=== PATIENT | female | born 1950 | race Two or more races ===

== ENCOUNTER 2019-08-28 10:52 | Emergency (ER) | payer OTHER, MEDICAID ==
[~2019-08-28] VITALS: Ht 154.9 cm; Wt 68.9 kg
[~2019-08-28 10:52] MED LIST: ENAL2.5T; GABA100C; GLYB1.257; METF-370; PIOG15TA38
[2019-08-28 11:01] VITALS: BP 137/63
[2019-08-28 11:46] LABS: Basophils # (auto) 0.1 uL; Basophils % (auto) 1.3 % (0.0-2.0); Eosinophils # (auto) 0.1 uL; Eosinophils % (auto) 1.2 % (0.0-7.0); Lymphocytes # (auto) 1.6 uL; Lymphocytes % (auto) 23.8 % (10.0-50.0); Mean Corpuscular Hemoglobin 29.2 pg (28.0-32.0); Mean Corpuscular Hgb Conc. 33.4 g/dL (32.0-36.0); Mean Corpuscular Volume 87.4 fL (80.0-100.0); Monocytes # (auto) 0.3 uL; Monocytes % (auto) 4.7 % (0.0-12.0); Neutrophils # (auto) 4.7 uL; Nucleated Red Blood Cells % 0.1 %; Platelet Count (auto) 231 10^3/uL (140-450); Red Blood Cells 4.47 10^6/uL (4.0-5.20); White Blood Cell 6.8 10^3/uL (4.4-10.8)
[2019-08-28 12:12] LABS: Alanine Aminotransferase 33 U/L (13-56); Albumin 3.4 g/dL (3.4-5.0); Anion Gap 5 (5-15); Aspartate Aminotransferase 23 U/L (15-37); BUN/Creatinine Ratio 18.9; Blood Urea Nitrogen 14 mg/dL (7-18); Calcium 9.1 mg/dL (8.5-10.1); Carbon Dioxide 30 mmol/L (21-32); Chloride 105 mmol/L (98-107); GFR African American 101 mL/min; GFR Non-African American 83 mL/min; Glucose 174 mg/dL (74-106); Sodium 140 mmol/L (136-145)
[2019-08-28 12:17] LABS: Alkaline Phosphatase 77 U/L (45-117); Bilirubin, Total 0.2 mg/dL (0.2-1.0); Total Protein 7.8 g/dL (6.4-8.2)
[2019-08-28 12:39] LABS: Urine Bacteria NONE SEEN /hpf (None Seen); Urine Blood Negative /uL (Negative); Urine Specific Gravity 1.012 (1.001-1.035); Urine WBC <1 /hpf (0 - 5)
== END 2019-08-28 14:50 | disposition home or self-care (01) ==
LOC: ER 10:52
DX: K29.70 Gastritis, unspecified, without bleeding (principal); E11.9 Type 2 diabetes mellitus without complications; I10 Essential (primary) hypertension; E78.5 Hyperlipidemia, unspecified; Z90.49 Acquired absence of other specified parts of digestive tract; Z85.3 Personal history of malignant neoplasm of breast
CPT/HCPCS: 36415; 74176; 80053; 81001; 83690; 84484; 85025; 93005

== ENCOUNTER → 2020-01-16 | Emergency (ER) | payer OTHER, MEDICAID ==
[~2020-01-16] VITALS: Ht 152.4 cm; Wt 68.0 kg
[2020-01-16 10:29] VITALS: BP 120/60
== END | disposition home or self-care (01) ==
LOC: ER 10:17
DX: J20.9 Acute bronchitis, unspecified (principal); J01.00 Acute maxillary sinusitis, unspecified; E11.9 Type 2 diabetes mellitus without complications; I10 Essential (primary) hypertension; E78.5 Hyperlipidemia, unspecified; Z90.49 Acquired absence of other specified parts of digestive tract
CPT/HCPCS: 71046

== ENCOUNTER 2020-07-18 08:42 | Emergency (ER) | payer OTHER, MEDICAID ==
[~2020-07-18] VITALS: Ht 152.4 cm; Wt 69.9 kg
[~2020-07-18 08:42] MED LIST changes: -ENAL2.5T; +ENAL2.5T7
[2020-07-18 09:45] LABS: Basophils # (auto) 0.1 10 ^3/uL (0-0.2); Basophils % (auto) 0.8 % (0.0-2.0); Eosinophils # (auto) 0.1 10 ^3/uL (0-0.8); Hematocrit 39.8 % (36.0-46.0); Hemoglobin 13.2 g/dL (12.2-16.2); Lymphocytes # (auto) 1.9 10 ^3/uL (0.4-5.4); Lymphocytes % (auto) 27.2 % (10.0-50.0); Mean Corpuscular Hemoglobin 28.8 pg (28.0-32.0); Mean Corpuscular Hgb Conc. 33.2 g/dL (32.0-36.0); Mean Corpuscular Volume 86.7 fL (80.0-100.0); Monocytes # (auto) 0.4 10 ^3/uL (0-1.3); Monocytes % (auto) 5.5 % (0.0-12.0); Neutrophils # (auto) 4.6 10 ^3/uL (1.6-8.6); Neutrophils % (auto) 65.5 % (37.0-80.0); Nucleated Red Blood Cells % 0.1 %; Platelet Count (auto) 269 10^3/uL (140-450); Red Blood Cells 4.59 10^6/uL (4.0-5.20); Red Cell Distribution Width 14.6 % (11.8-14.3); White Blood Cell 7.1 10^3/uL (4.4-10.8)
[2020-07-18 09:51] LABS: Albumin 3.7 g/dL (3.4-5.0); Anion Gap 5 (5-15); Blood Urea Nitrogen 19 mg/dL (7-18); Calcium 8.9 mg/dL (8.5-10.1); Carbon Dioxide 26 mmol/L (21-32); Chloride 104 mmol/L (98-107); Glucose 275 mg/dL (74-106); Potassium 4.1 mmol/L (3.5-5.1); Sodium 135 mmol/L (136-145)
[2020-07-18 09:58] LABS: Alanine Aminotransferase 64 U/L (13-56); Alkaline Phosphatase 72 U/L (45-117); Aspartate Aminotransferase 40 U/L (15-37); BUN/Creatinine Ratio 19.2; Bilirubin, Total 0.4 mg/dL (0.2-1.0); GFR African American 72 mL/min; GFR Non-African American 59 mL/min; Total Protein 7.8 g/dL (6.4-8.2)
[2020-07-18] MEDS ORDERED: SODIUM CHLORIDE 0.9% 1,000 ML IV ONE (10:37)
[2020-07-18] MEDS ORDERED: METOCLOPRAMIDE HCL 5MG/ml INJ 2ml VIAL IV ONE (10:45)
[2020-07-18] MEDS ORDERED: MORPHINE SULFATE 4 MG/ML SYR/VIAL IV ONE (10:45)
[2020-07-18 11:01] LABS: Magnesium 1.8 mg/dL (1.6-2.6)
[2020-07-18 12:17] LABS: Urine Bacteria NONE SEEN /hpf (None Seen); Urine Blood Negative /uL (Negative); Urine Specific Gravity 1.006 (1.001-1.035); Urine WBC 3 /hpf (0 - 5)
[2020-07-18 13:54] VITALS: BP 131/64
== END 2020-07-18 14:02 | disposition home or self-care (01) ==
LOC: ER 08:42
DX: N39.0 Urinary tract infection, site not specified (principal); R16.0 Hepatomegaly, not elsewhere classified; K59.8 Other specified functional intestinal disorders; K52.89 Other specified noninfective gastroenteritis and colitis; G44.209 Tension-type headache, unspecified, not intractable; M19.90 Unspecified osteoarthritis, unspecified site; E11.9 Type 2 diabetes mellitus without complications; E78.5 Hyperlipidemia, unspecified; I10 Essential (primary) hypertension; Z90.49 Acquired absence of other specified parts of digestive tract; Z79.899 Other long term (current) drug therapy
CPT/HCPCS: 36415; 71046; 72040; 74176; 80053; 81001; 83690; 83735; 84484; 85025; 93005; 96361; 96374; 96375; 99285; J2270; J2765; J7030

== ENCOUNTER 2023-07-02 09:08 | Emergency (ER) | payer OTHER, MEDICAID ==
[~2023-07-02] VITALS: Ht 152.4 cm; Wt 78.0 kg
[~2023-07-02 09:08] MED LIST changes: +ENAL1TAB42; -ENAL2.5T7
[2023-07-02 10:33] LABS: Urine Bacteria NONE SEEN /hpf (None Seen); Urine Blood 3+ /uL (Negative); Urine Clarity CLOUDY (Clear); Urine Color Yellow (Yellow); Urine Protein, UAD 1+ (Negative); Urine Specific Gravity 1.015 (1.001-1.035); Urine Urobilinogen Normal (Negative); Urine WBC 765 /hpf (0 - 5); Urine WBC Clumps PRESENT /hpf (None Seen); Urine pH 5.5 (5.0-8.0)
[2023-07-02 11:19] VITALS: BP 145/56; PULSE 74; RESP 20; TEMP 97.2; O2SAT 95
[2023-07-02] MEDS ORDERED: NITR-87 PO (12:02)
== END 2023-07-02 12:11 | disposition home or self-care (01) ==
LOC: ER 09:08
DX: N39.0 Urinary tract infection, site not specified (principal); M19.90 Unspecified osteoarthritis, unspecified site; I10 Essential (primary) hypertension; E11.9 Type 2 diabetes mellitus without complications; E78.5 Hyperlipidemia, unspecified; Z90.49 Acquired absence of other specified parts of digestive tract; Z79.84 Long term (current) use of oral hypoglycemic drugs; Z79.899 Other long term (current) drug therapy
CPT/HCPCS: 81001

== ENCOUNTER 2024-04-28 07:46 | Inpatient (IN) | payer OTHER, MEDICAID ==
[~2024-04-28] VITALS: Ht 152.4 cm; Wt 73.4 kg
[~2024-04-28 07:46] MED LIST changes: +IBUP-1456 PO; +NITR-87 PO
[2024-04-28 08:29] LABS: Urine Bacteria None Seen /hpf (None Seen)
[2024-04-28 08:38] LABS: Basophils # (auto) 0.1 10 ^3/uL (0-0.2); Basophils % (auto) 1.1 % (0.0-2.0); Eosinophils # (auto) 0.1 10 ^3/uL (0-0.8); Eosinophils % (auto) 1.9 % (0.0-7.0); Hematocrit 38.9 % (36.0-46.0); Lymphocytes # (auto) 1.7 10 ^3/uL (0.4-5.4); Lymphocytes % (auto) 22.7 % (10.0-50.0); Mean Corpuscular Hemoglobin 29.2 pg (28.0-32.0); Mean Corpuscular Hgb Conc. 33.3 g/dL (32.0-36.0); Mean Corpuscular Volume 87.7 fL (80.0-100.0); Monocytes # (auto) 0.4 10 ^3/uL (0-1.3); Monocytes % (auto) 5.6 % (0.0-12.0); Neutrophils % (auto) 68.7 % (37.0-80.0); Red Blood Cells 4.44 10^6/uL (4.0-5.20); Red Cell Distribution Width 15.1 % (11.8-14.3); White Blood Cell 7.3 10^3/uL (4.4-10.8)
[2024-04-28 08:46] LABS: Urine Blood Negative /uL (Negative); Urine Clarity Clear (Clear); Urine Color Light-Yellow (Yellow); Urine Mucus FEW (None Seen); Urine Protein, UAD TRACE (Negative); Urine Specific Gravity 1.018 (1.001-1.035); Urine Urobilinogen Normal (Negative); Urine WBC 2 /hpf (0 - 5)
[2024-04-28 08:56] LABS: Alanine Aminotransferase 37 U/L (7-40); Albumin 4.5 g/dL (3.2-4.8); Alkaline Phosphatase 73 U/L (46-116); Anion Gap 4 (5-15); Aspartate Aminotransferase 20 U/L (13-40); BUN/Creatinine Ratio 18.2 (10.0-20.0); Bilirubin, Total 0.3 mg/dL (0.2-1.0); Blood Urea Nitrogen 16 mg/dL (9-23); Calcium 9.9 mg/dL (8.5-10.1); Carbon Dioxide 28 mmol/L (20-30); Chloride 107 mmol/L (98-107); Glucose 151 mg/dL (74-106); Potassium 4.4 mmol/L (3.5-5.1); Sodium 139 mmol/L (136-145)
[2024-04-28] MEDS: SODIUM CHLORIDE 0.9% 1,000 ML IV ONE (09:51)
[2024-04-28] MEDS: SODIUM CHLORIDE 0.9% 500 ML IV ONE (10:00)
[2024-04-28] MEDS: PIPERACILLIN-TAZOB 3.375GM 100 ML IV ONE (10:08)
[2024-04-28] MEDS: SODIUM CHLORIDE 0.9% 1,000 ML IV SCH (11:00)
[2024-04-28] MEDS ORDERED: ONDANSETRON HCL 4 MG/2 ML VIAL IV PRN (11:00)
[2024-04-28] MEDS ORDERED: DEXTROSE (50%) 50ML SYRG IV PRN (11:00)
[2024-04-28] MEDS ORDERED: MORPHINE SULFATE INJ 2 MG/ml SYRG IV PRN (11:00)
[2024-04-28] MEDS: ACCU-CHEK COMFORT CURVE STRIP VI SCH (11:30)
[2024-04-28] MEDS: cefTRIAXone 1GM/50ML D5W 50 ML IV ONE (13:18)
[2024-04-28] MEDS: InsuLIN REG 1unit/0.01ml Soln (100units/ml) SC SCH ×2 (13:31→21:40)
[2024-04-28 17:23] VITALS: BP 144/70; PULSE 60; RESP 18; TEMP 98.1; O2SAT 96
[2024-04-28 20:00] VITALS: PULSE 68; RESP 18; O2SAT 95
[2024-04-28 21:28] VITALS: BP 104/53; PULSE 68; RESP 18; TEMP 98; O2SAT 95
[2024-04-29] VITALS (8 sets, daily range): BP systolic 100–159; BP diastolic 58–65; PULSE 61–77; RESP 16–20; TEMP 97.7–98.6; O2SAT 96–98
[2024-04-29 07:03] LABS: Basophils # (auto) 0.1 10 ^3/uL (0-0.2); Basophils % (auto) 0.9 % (0.0-2.0); Eosinophils # (auto) 0.1 10 ^3/uL (0-0.8); Eosinophils % (auto) 1.2 % (0.0-7.0); Hematocrit 37.1 % (36.0-46.0); Hemoglobin 12.3 g/dL (12.2-16.2); Lymphocytes # (auto) 1.9 10 ^3/uL (0.4-5.4); Lymphocytes % (auto) 25.5 % (10.0-50.0); Mean Corpuscular Hemoglobin 28.9 pg (28.0-32.0); Mean Corpuscular Hgb Conc. 33.1 g/dL (32.0-36.0); Mean Corpuscular Volume 87.2 fL (80.0-100.0); Monocytes # (auto) 0.4 10 ^3/uL (0-1.3); Monocytes % (auto) 5.3 % (0.0-12.0); Neutrophils # (auto) 5.1 10 ^3/uL (1.6-8.6); Neutrophils % (auto) 67.1 % (37.0-80.0); Red Blood Cells 4.25 10^6/uL (4.0-5.20); Red Cell Distribution Width 15.1 % (11.8-14.3); White Blood Cell 7.6 10^3/uL (4.4-10.8)
[2024-04-29 07:38] LABS: Alanine Aminotransferase 31 U/L (7-40); Alkaline Phosphatase 64 U/L (46-116); Anion Gap 9 (5-15); Aspartate Aminotransferase 20 U/L (13-40); BUN/Creatinine Ratio 15.7 (10.0-20.0); Blood Urea Nitrogen 13 mg/dL (9-23); Calcium 9.4 mg/dL (8.7-10.4); Carbon Dioxide 26 mmol/L (20-30); Chloride 108 mmol/L (98-107); Glucose 97 mg/dL (74-106); Potassium 3.8 mmol/L (3.5-5.1); Sodium 143 mmol/L (136-145)
[2024-04-29 07:39] LABS: Bilirubin, Total 0.4 mg/dL (0.2-1.0); Total Protein 6.6 g/dL (5.7-8.2)
[2024-04-29] MEDS: ENALAPRIL MALEATE 2.5 MG TAB PO SCH (09:55)
[2024-04-29] MEDS: cefTRIAXone 1GM/50ML D5W 50 ML IV SCH (09:55)
[2024-04-29] MEDS ORDERED: GABA-1250 PO (17:06)
[2024-04-29] MEDS ORDERED: METF-370 PO (17:06)
[2024-04-29] MEDS ORDERED: MET50T PO (17:06)
[2024-04-29] MEDS ORDERED: LEVO25TA6 PO (17:06)
[2024-04-29] MEDS ORDERED: ATOR-507 PO (17:06)
[2024-04-29] MEDS ORDERED: GLIP5TAB21 PO (17:06)
[2024-04-29] MEDS ORDERED: FAMO-12 PO (17:06)
[2024-04-29] MEDS ORDERED: CLOP75TA70 PO (17:06)
[2024-04-29] MEDS ORDERED: CHOLTAB14 PO (17:06)
[2024-04-29] MEDS ORDERED: ASPI81CH59 PO (17:06)
[2024-04-29] MEDS ORDERED: EVOL140I2 SC (17:14)
[2024-04-29] MEDS ORDERED: DULA0.5I SC (17:14)
[2024-04-30 01:00] VITALS: BP 157/70; PULSE 71; RESP 18; TEMP 97.9; O2SAT 96
[2024-04-30 05:00] VITALS: BP 139/63; PULSE 68; RESP 18; TEMP 98.1; O2SAT 98
[2024-04-30 08:00] VITALS: PULSE 76; RESP 18; O2SAT 98
[2024-04-30] MEDS: DOCUSATE SOD 100 MG CAP PO PRN (08:09)
[2024-04-30] MEDS ORDERED: LEVO500T91 PO (08:51)
[2024-04-30 09:00] VITALS: BP 139/65; PULSE 65; RESP 17; TEMP 97.9; O2SAT 98
[2024-04-30 10:59] VITALS: BP 139/65; TEMP 36.6
== END 2024-04-30 11:40 | disposition home or self-care (01) | DRG 690 ==
LOC: ER 07:46 → OVERFLOW 11:16 → EAST 16:19
PROVIDERS: ADMIT Nurse Practitioner Family; ATTEND Internal Medicine
DX: N12 Tubulo-interstitial nephritis, not specified as acute or chronic (principal); E11.65 Type 2 diabetes mellitus with hyperglycemia; E78.5 Hyperlipidemia, unspecified; I10 Essential (primary) hypertension; Z90.49 Acquired absence of other specified parts of digestive tract; Z79.4 Long term (current) use of insulin; Z79.899 Other long term (current) drug therapy
CPT/HCPCS: 36415; 74176; 80053; 81001; 82962; 84484; 85025; 93971; G0378; J1815; J2543

== ENCOUNTER 2025-03-30 18:42 | Emergency (ER) | payer OTHER, MEDICAID ==
[~2025-03-30] VITALS: Ht 152.4 cm; Wt 69.2 kg
[~2025-03-30 18:42] MED LIST changes: +ASPI81CH59 PO; +ATOR-507 PO; +CHOLTAB14 PO; +CLOP75TA70 PO; +DULA0.5I SC; +EVOL140I2 SC; +FAMO-12 PO; +GABA-1250 PO; -GABA100C; +GLIP5TAB21 PO; -GLYB1.257; +LEVO25TA6 PO; +LEVO500T91 PO; +MET50T PO; -METF-370; +METF-370 PO; -NITR-87 PO; -PIOG15TA38
[2025-03-30] MEDS ORDERED: MAALOX PLUS or MAALOX 30 ML PO ONE (19:45)
[2025-03-30] MEDS ORDERED: ONDANSETRON ODT 4 MG TAB PO ONE (19:45)
[2025-03-30] MEDS ORDERED: LIDOCAINE VISCOUS 2% 15ML UD PO ONE (19:45)
--- NOTE | 2025-03-30 19:52 | ED.PDOC ---
History of Present Illness HPI Comments 74 y/o F, with a history of arthritis, DM, HLD, HTN, and cholecystectomy, presents for 3x day history of acid reflux, with associated nausea. Patient is a Italian speaker. She describes her acid reflex as a constant "fullness" sensation. She reports isolated episode of her blood pressure being low than usual 3x days ago and having diarrhea alongside other symptoms during early onset, that resolved on its own prior to arrival. Patient reports no recent travel, substance use, spoiled food intake, change in diet, new medications, or injuries. She denies vomiting or having any fever, chills, urinary symptoms, diarrhea, abdominal pain, or further associated symptoms or modifiers. Chief Complaint: Abdominal Pain Time Seen by MD: 19:30 Primary Care Provider: Unknown Reviewed Notes: Nurses Notes, Medications, Allergies Allergies: Coded Allergies: NO KNOWN ALLERGIES (Unverified , 05/16/12) Home Meds Active Scripts Levofloxacin Hemihydrate (LEVOFLOXACIN) 500 Mg Tab, 1 TAB PO DAILY for 7 Days, #7 TAB Prov:JOEL LOTT DO 04/30/24 Reported Medications Dulaglutide (Trulicity) 1.5 Mg/0.5 Ml Inj, 1.5 MG SC WEEKLY Inject 1.5 mg subcutaneously weekly. 04/29/24 Evolocumab (Repatha Sureclick) 140 Mg/Ml Inj, 140 MG SC Q2WEEK Inject 140 mg subcutaneously every 2 weeks. 04/29/24 Metformin Hydrochloride (Metformin Hcl) 500 Mg Tab, 1000 MG PO BID 04/29/24 Gabapentin (Gabapentin) 300 Mg Cap, 1 CAP PO TID 04/29/24 Glipizide (Glipizide) 5 Mg Tab, 1 TAB PO BID 04/29/24 Aspirin (Aspirin Low Dose) 81 Mg Chw, 1 TAB PO DAILY 04/29/24 Atorvastatin Calcium (Lipitor) 40 Mg Tab, 1 TAB PO DAILY 04/29/24 Famotidine (Famotidine) 20 Mg Tab, 40 MG PO DAILY 04/29/24 Clopidogrel Bisulfate (CLOPIDOGREL) 75 Mg Tab, 1 TAB PO DAILY 04/29/24 Ibuprofen (Ibuprofen) 800 Mg Tab, 1 TAB PO DAILY for 20 Days, #20 04/29/24 Levothyroxine Sodium (Levothyroxine Sodium) 25 Mcg Tab, 1 TAB PO DAILY 04/29/24 Metoprolol Tartrate (LOPRESSOR TABLET) 50 Mg Tb, 25 MG PO BID 04/29/24 Cholecalciferol (D-1000 EXTRA STRENGTH) 1,000 Unit Tab, 1 TAB PO DAILY 04/29/24 Enalapril Maleate (Enalapril Maleate) 2.5 Mg Tab 05/16/12 Information Source: Patient Mode of Arrival: Ambulatory Severity: Moderate Timing: Days Duration: Since onset Prehospital treatment: None Review of Systems: REVIEW OF SYSTEMS: No fever, no chills, or fatigue HEENT: No sore throat, no earache, no congestion, no neck pain. Cardiac: No chest pain. No palpitations. Lungs: No shortness of breath, no cough. GI: Acid reflux, nausea, no vomiting, no diarrhea, no constipation, no abdominal pain : No dysuria, frequency, or urgency. No hematuria. Musculoskeletal: No joint pain , no joint swelling, no extremity edema. Skin: No rash, no itching. Neuro: No headache, no dizziness, no weakness Vital Signs Vital Signs Date Time Temp Pulse Resp B/P (MAP) Pulse Ox O2 Delivery O2 Flow Rate FiO2 03/30/25 19:53 78 03/30/25 19:08 99.7 16 133/60 (84) 95 99.7 Physical Exam General: Awake, alert and oriented. No acute distress. Skin: Skin in warm, dry and intact. Appropriate color for ethnicity. HEENT: The head is normocephalic and atraumatic. Conjunctivae are clear without exudates or hemorrhage. Sclera is non-icteric. EOM are intact. No signs of nystagmus. Eyelids are normal in appearance without swelling or lesions. Oral mucosa is pink and moist Neck: The neck is supple with normal range of motion. No JVD. Cardiac: Heart rate and rhythm are normal. No murmurs, gallops, or rubs are auscultated. Respiratory: No signs of respiratory distress. Lung sounds are clear in all lobes bilaterally without rales, rhonchi, or wheezes. Abdominal: Epigastric and RUQ abdominal tenderness. Otherwise abdomen is soft, without distention. Bowel sounds are present and normoactive in all four quadrants. Extremities: Upper and lower extremities are atraumatic in appearance without deformity or edema. Neurological: The patient is awake, alert and oriented to person, place, and time with normal speech. Speech is clear. There is no facial asymmetry. Psychiatric: Appropriate mood and affect. Good judgement and insight. Past Medical History PAST MEDICAL HISTORY: Arthritis, DM, High Lipids, HTN Surgical History: Cholecystectomy FISHING CAPTAIN History: No Pertinent FISHING CAPTAIN History Family History Family History: Reviewed,noncontributory to illness Social History Smoker: Non-Smoker Alcohol: Occasionally Drugs: Denies Drug Use Lives In: Home Was a procedure done? Was a procedure done?: No EKG EKG : Pulse Rate (adult): 78 [place]: Normal Cardiac Rhythm: NSR Block: None Hypertrophy: None ST: Normal Comments No STEMI Differential Dx Considerations may include: GERD, PUD, gastritis, gastroenteritis, viral syndrome, acute coronary syndrome, among others X-Ray, Labs, Meds, VS Vital Signs Date Time Temp Pulse Resp B/P (MAP) Pulse Ox O2 Delivery O2 Flow Rate FiO2 03/30/25 19:53 78 03/30/25 19:15 78 03/30/25 19:08 99.7 80 16 133/60 (84) 95 99.7 Lab Test 03/30/25 19:41 Range/Units White Blood Count 8.2 4.4-10.8 10^3/uL Red Blood Count 4.63 4.0-5.20 10^6/uL Hemoglobin 13.4 12.2-16.2 g/dL Hematocrit 40.3 36.0-46.0 % Mean Corpuscular Volume 87.0 80.0-100.0 fL Mean Corpuscular Hemoglobin 28.9 28.0-32.0 pg Mean Corpuscular Hemoglobin Concent 33.2 32.0-36.0 g/dL Red Cell Distribution Width 14.7 H 11.8-14.3 % Platelet Count 291 140-450 10^3/uL Mean Platelet Volume 9.7 6.9-10.8 fL Neutrophils (%) (Auto) 68.3 37.0-80.0 % Lymphocytes (%) (Auto) 23.5 10.0-50.0 % Monocytes (%) (Auto) 5.7 0.0-12.0 % Eosinophils (%) (Auto) 1.3 0.0-7.0 % Basophils (%) (Auto) 1.2 0.0-2.0 % Neutrophils # (Auto) 5.6 1.6-8.6 10 ^3/uL Lymphocytes # (Auto) 1.9 0.4-5.4 10 ^3/uL Monocytes # (Auto) 0.5 0-1.3 10 ^3/uL Eosinophils # (Auto) 0.1 0-0.8 10 ^3/uL Basophils # (Auto) 0.1 0-0.2 10 ^3/uL Nucleated Red Blood Cells 0.0 % Sodium Level 137 136-145 mmol/L Potassium Level 3.9 3.5-5.1 mmol/L Chloride Level 100 98-107 mmol/L Carbon Dioxide Level 27 20-31 mmol/L Anion Gap 10 5-15 Blood Urea Nitrogen 21 9-23 mg/dL Creatinine 1.30 H 0.550-1.02 mg/dL Glomerular Filtration Rate Calc 44 >90 mL/min BUN/Creatinine Ratio 16.2 10.0-20.0 Serum Glucose 132 H 74-106 mg/dL Calcium Level 9.5 8.7-10.4 mg/dL Total Bilirubin 0.3 0.2-1.0 mg/dL Aspartate Amino Transferase (AST) 34 13-40 U/L Alanine Aminotransferase (ALT) 40 7-40 U/L Alkaline Phosphatase 90 46-116 U/L Troponin I High Sensitivity 3 L </=34 ng/L Total Protein 7.3 5.7-8.2 g/dL Albumin 4.8 3.2-4.8 g/dL Lipase 26 12-53 U/L PROCEDURE(s): ABPL - CT AB PEL WO CON-NO ORAL OR IV REASON: Epigastric pain, nausea ORDER NUMBER(s): [id number], ACCESSION NUMBER(s): [id number] Exam: CT CT AB PEL WO CON-NO ORAL OR IV History: Epigastric pain, nausea Comparison Study: CT CT AB PEL WO CON-NO ORAL OR IV on DOS: 04/28/24, CT ABD PELVIS WO CONTRAST on DOS: 07/18/20, CT ABD PELVIS WO CONTRAST on DOS: 08/28/19 TECHNIQUE: Multidetector CT of the abdomen was performed from lung bases to pubic symphysis. Imaging was performed without IV contrast. Axial, coronal and sagittal multiplanar reformats were obtained from the axial data set by the technologist. Radiation Dose Information: CT Dose: CTDI volume is 18.33 mGy. Dose-length product is 964.7 mGy*cm FINDINGS: Evaluation of solid organs is limited due to lack of intravenous contrast use. Findings: Lung Bases: No acute or significant lung base finding. Normal heart size. No pleural or pericardial effusion. Liver: The liver is normal in size. No focal lesions. Gallbladder and Biliary Tree: Gallbladder removed. Spleen: Unremarkable Pancreas: The pancreas is grossly normal in appearance. Adrenal Glands: Unremarkable Kidneys: Kidneys are grossly normal without calculi or hydronephrosis. Bladder: Grossly unremarkable for degree of distention. Bowel: The stomach is grossly normal in appearance. Small bowel and colon are normal in caliber and distribution. No findings of bowel obstruction. There is a large stool burden in the right colon. The appendix is not visualized; however, no secondary findings of acute appendicitis identified. Ascites: Absent Lymphadenopathy: No mesenteric, retroperitoneal or periportal lymphadenopathy. Abdominal Wall and Mesentery: Unremarkable. Vasculature: The visualized abdominal aorta is normal in size and caliber. Evaluation of abdominal and pelvic vessels is limited due to lack of intravenous contrast. Pelvic Organs: Unremarkable Musculoskeletal: No aggressive focal bony lesions, acute fractures or dislocation. Soft tissues: Unremarkable IMPRESSION: 1. No findings of bowel obstruction. There is a large stool burden in the right colon. 2. Gallbladder has been surgically removed. 3. No nephrolithiasis or hydronephrosis. Radiation optimization: All CT scans at this facility use at least one of these dose optimization techniques: automated exposure control mA and/or kV adjustment per patient size (includes targeted exams where dose is matched to clinical indication) or iterative reconstruction. ATED BY: PANCHITO FOWLER Jr., DO DICTATED DATE/TIME: 03/30/252029 SIGNED BY: PANCHITO FOWLER Jr., SIGNED DATE/TIME: 03/30/252029 CC: Time of 1ST Reevaluation: 20:00 Reevaluation 1ST: Unchanged Patient Education/Counseling: Need For Follow Up Family Education/Counseling: No Family Present Departure 1 Departure Time of Disposition: 21:54 Impression: Primary Impression: Abdominal pain Additional Impression: Unspecified kidney failure Disposition: 01 HOME / SELF CARE / HOMELESS Condition: Stable Additional Instructions: INSTRUCCIONES DE SEGUN DE Urgencias Instrucciones: Deepali atentamente todas las instrucciones proporcionadas en thong paquete. Aunque le hayan dado el segun del Departamento de Emergencias, esto no significa que tenga un "certificado de buena doroteo". Hoy no se serrano realizado esthela�n diagn�stico definitivo para cecilia s�ntomas. Es posible que est�s en proceso de desarrollar helen enfermedad grave. Es por eso que debe regresar al servicio de urgencias sin falta si presenta alg�n s�ntoma nuevo o que empeora (especialmente si cecilia s�ntomas incluyen dolor en el pecho, dificultad para respirar, dolor abdominal, fiebre, dolor de glendy, confusi�n, dificultad para rafa o caminar). Tambi�n es muy importante que consulte a un m�dico de atenci�n primaria dentro de los pr�ximos 3 a 5 d�as para realizar un seguimiento. Cceilia pruebas de funci�n renal dieron resultados anormales hoy. Cupertino podr�a deberse a un problema cr�lydia o a deshidrataci�n. Por favor, ilsa mucho l�quido en casa. Acuda a helen dino de seguimiento con hernandez m�dico de cabecera para que le revisen la funci�n renal. Si no puede conseguir helen dino, regrese al servicio de urgencias para helen nueva evaluaci�n. Dolor abdominal: instrucciones de cuidado Imagen de los cuatro cuadrantes del abdomen. Descripci�n general El dolor abdominal tiene muchas causas posibles. Algunas no son graves y mejoran por s� solas en unos d�as. Otras requieren m�s pruebas y tratamiento. Si el dolor contin�a o empeora, es necesario volver a examinarlo y es posible que necesite m�s pruebas para averiguar qu� es lo que est� mal. Es posible que necesite helen cirug�a para corregir el problema. No ignore los s�ntomas nuevos, dasha fiebre, n�useas y v�mitos, problemas para orinar, dolor que empeora y mareos. Estos pueden ser signos de un problema m�s grave. Si no mejora, es posible que necesite m�s pruebas o tratamiento. El m�dico lo serrano examinado cuidadosamente, stephanie pueden surgir problemas m�s ad elante. Si nota alg�n problema o s�ntomas nuevos, busque tratamiento m�dico de inmediato . El seguimiento m�dico es helen parte fundamental de hernandez tratamiento y hernandez seguridad. Aseg�rese de programar y acudir a todas las citas, y llame a hernandez m�dico si tiene problemas. Tambi�n es helen buena idea saber los resultados de cecilia pruebas y llevar helen lista de los medicamentos que yadira. �C�mo puedes cuidarte en casa? Descansa hasta que te sientas mejor. Para prevenir la deshidrataci�n, ilsa abundante l�quido. Elija agua y otros l�quidos ulisses hasta que se sienta mejor. Si tiene helen enfermedad renal, card�kelly o hep�chip y debe limitar los l�quidos, consulte con hernandez m�dico antes de aumentar la cantidad de l�quidos que mae. Cuando sientas ganas de comer, empieza con ivory�as cantidades. No tomes alcohol, cafe�na ni alimentos picantes, calientes o con alto contenido de grasa roberto karl o dos d�as. Evite los medicamentos antiinflamatorios dasha la aspirina, el ibuprofeno (Advil, Motrin) y el naproxeno (Aleve). Pueden causar malestar estomacal. Hable con hernandez m�dico si yadira aspirina a diario por otro problema de doroteo. �Cu�ndo debes pedir ayuda? Llame al 911 en cualquier momento en que crea que puede necesitar atenci�n de emergencia. Por ejemplo, llame si: Te desmayaste (perdiste el conocimiento). Tiene heces de color nathan�n o con breanna albino. Vomitas albino o lo que parecen posos de caf�. Tienes un dolor intenso en el vientre. Llame a hernandez m�dico ahora o busque atenci�n m�dica inmediata si: El dolor empeora, especialmente si se concentra en helen maximus determinada del abdomen. Tiene fiebre nueva o m�s segun. Las heces son negras y parecen alquitr�n, o tienen vetas de albino. Tienes sangrado vaginal inesperado. Tiene s�ntomas de helen infecci�n del tracto urinario. Estos pueden incluir: Dolor al orinar. Orinar con m�s frecuencia de lo habitual. Albino en la orina. Se siente mareado o aturdido, o siente que se puede desmayar. Preste atenci�n a los cambios en hernandez doroteo y aseg�rese de comunicarse con hernandez m�dico si: No est�s mejorando dasha esperabas. Cr�ditos para el dolor abdominal: instrucciones de cuidado Actualizado al: 2023 Autor: Personal de [facility], [facility] Enfermedad renal cr�jamey: Instrucciones de cuidado Descripci�n general La enfermedad renal cr�jamey ocurre cuando los ri�ones no funcionan correctamente. Los ri�ones desempe�an varias funciones importantes: eliminan los desechos de la albino, que se excretan en la orina, y equilibran los l�quidos y las sustancias qu�micas del cuerpo. Cuando los ri�ones no funcionan madelyn, se pueden acumular desechos y l�quidos en exceso. Cupertino puede intoxicar el cuerpo y, en ocasiones, causar la muerte. Las causas m�s comunes de esta enfermedad son la diabetes y la hipertensi�n arterial. En algunos casos, la enfermedad se desarrolla en 2 o 3 meses, stephanie suele desarrollarse a lo cornelius de muchos a�os. Si yadira medicamentos y hace cambios saludables en hernandez estilo de tiara, podr�a prevenir que la enfermedad empeore. Stephanie si el da�o renal empeora, podr�a necesitar di�lisis o un trasplante de ri��n. La di�lisis utiliza helen m�quina para filtrar los desechos de la albino. Un trasplante es helen cirug�a para obten er un ri��n rosalio de otra persona. El seguimiento es fundamental para hernandez tratamiento y seguridad. Aseg�rese de programar y acudir a todas cecilia citas, y llame a hernandez m�dico si tiene alg�n problema. Darcibi�n es recomendable estar al tanto de los resultados de cecilia pruebas y llevar helen lista de los medicamentos que yadira. �C�mo puedes cuidarte en casa? Tratamientos y citas Doyle cecilia medicamentos con precauci�n. T�melos exactamente dasha se los recetaron. Llame a hernandez m�dico si tiene alg�n problema con cecilia medicamentos. Tambi�n puede vikas medicamentos para controlar la presi�n arterial o para tratar la diabetes. Muchas personas con diabetes susanne medicamentos para la presi�n arterial. Si tiene diabetes, lynsey todo lo posible por mantener hernandez nivel de az�car en albino dentro de los l�mites adecuados. Puede lograrlo comiendo rosalio y haciendo ejercicio. Tambi�n puede vikas medicamentos. Acuda a cecilia citas de di�lisis si tiene thong tratamiento. No tome ibuprofeno, naproxeno ni medicamentos similares, a menos que hernandez m�dico se lo indique. Estos pueden empeorar la enfermedad. No tome ninguna vitamina, medicamento de venta neelima ni producto a base de hierbas sin consultar fer con hernandez m�dico. No fume ni use otros productos de tabaco. Fumar puede reducir el flujo sangu�nolan a los ri�ones. Si necesita ayuda para dejar de fumar, consulte con hernandez m�dico sobre programas y medicamentos para dejar de fumar. Estos pueden aumentar cecilia probabilidades de dejar de fumar definitivamente. Limite el consumo de alcohol y evite las drogas ilegales. Habla con tu m�dico sobre un plan de ejercicios. El ejercicio ayuda a bajar la presi�n arterial. Ginger te hace sentir mejor. Si tiene helen directiva anticipada, inf�rmeselo a hernandez m�dico. Esta puede incluir un testamento vital y un poder notarial duradero para la atenci�n m�dica. Si no tiene karl, le conviene preparar karl. Cupertino le permite a hernandez m�dico y a cecilia seres queridos conocer cecilia deseos en cuanto a la atenci�n m�dica si no puede expresarse por s� mismo. Dieta Consulte con un dietista titulado. Un dietista puede ayudarle a elaborar un plan de alimentaci�n con las cantidades adecuadas de erna (sodio), potasio y prote�geetha. Tambi�n podr�a necesitar limitar la cantidad de l�quido que mae a diario. Quiz�s tengas que renunciar a muchos alimentos que te gustan. Stephanie intenta concentrarte en que esto te ayudar� a mantenerte saludable el mayor tiempo posible. Si le resulta dif�cil comer lo suficiente, hable con hernandez m�dico o dietista sobre formas de agregar calor�as a hernandez dieta. Hernandez dieta puede cambiar a medida que hernandez enfermedad evolucione. Consulte a hernandez m�dico para hacerse an�lisis masha�dicos. Y colabore con un dietista para modificar hernandez dieta seg�n sea necesario. �Cu�ndo debes pedir ayuda? Llame al 911 en cualquier momento que considere que necesita atenci�n de emergencia. Por ejemplo, llame si: Te desmayaste (perdiste el conocimiento). Llame a hernandez m�dico ahora o busque atenci�n m�dica inmediata si: Tiene menos orina de lo normal o no orina. Tiene dificultad para orinar o s�lo puede orinar cantidades muy ivory�as. Est�s confundido o tienes problemas para pensar con claridad. Te sientes m�s d�do o m�s cansado de lo habitual. Tienes breanna sed, est�s mareado o aturdido. Tienes n�useas y v�mitos. Tiene hinchaz�n nueva en los brazos o los pies, o la hinchaz�n serrano empeorado. Tienes albino en la orina. Tiene problemas nuevos o peores para respirar. Preste atenci�n a los cambios en hernandez doroteo y aseg�rese de comunicarse con hernandez m�dico si: Tiene alg�n problema con hernandez medicamento u otro tratamiento. Cr�ditos para la enfermedad renal cr�jamey: Instrucciones de cuidado Actualizado al: 2023 Autor: Personal de [email or web address] Junta de revisi�n cl�jamey Toda la educaci�n de [email or web address] es revisada por un equipo que incluye m�dicos, enfermeras, profesionales avanzados, dietistas registrados y otros profesionales de la doroteo. e-Prescriptions Famotidine (PEPCID TABLET) 20 Mg Tb 1 TAB PO BID for 5 Days, #10 TAB 5 Refills Prov: SHELLY TOBIN MD 03/30/25 Ondansetron Odt 4MG Tab (ZOFRAN PO) 4 Mg Tb 4 MG PO BIDPRN PRN for 3 Days, #6 TAB ODT TAB-DISSOLVE IN MOUTH, THEN SWALLOW Prov: SHELLY TOBIN MD 03/30/25 Comments 74-year-old female with nausea and acid reflux symptoms. Abdominal exam is benign. IAN versus CKD noted on labs. IV fluid bolus administered in the emergency department. Discussed with the patient importance of follow up with PCP for re-evaluation. Patient is well-appearing, nontoxic. Patient's symptoms improved during the ED observation. Vital signs stable. CT abdomen and pelvis shows no acute process. Patient is felt stable for discharge home. Patient advised to follow up with primary care provider promptly and return to the emergency department with any new, worsening or concerning symptoms. I reviewed the following notes from the pt's past medical encounters: Encounter April 2024 for pyelonephritis. The following tests were ordered, and results were reviewed by me: (See diagnostic results section) The following test were independently interpreted by me: EKG Additional information was gathered from interviewing the following independent historians: N/A I reviewed and agreed with the following test results read by other providers: N/A I discussed treatments and results with patient Decision regarding hospitalization or escalation of hospital level of care: Risks and benefits of admission for further treatment of patient's condition was considered however due to patient's stable condition patient will be discharged to follow up closely or return to care for worsening of condition or inability to follow up. Critical Care Note Critical Care Time?: No Stability Stability form required: No Heart Score Heart Score: Heart Score Response (Comments) Value History N/A 0 EKG N/A 0 Age N/A 0 Risk Factors N/A 0 Troponin N/A 0 Total 0 I personally scribed for SHELLY TOBIN MD ([email or web address]) on 03/30/25 at 19:52. Electronically submitted by Salvador Hernández ([email or web address]). I personally scribed for SHELLY TOBIN MD ([email or web address]) on 03/30/25 at 19:53. Electronically submitted by Salvador Hernández ([email or web address]). I personally scribed for HSELLY TOBIN MD ([email or web address]) on 03/30/25 at 20:13. Electronically submitted by Salvador Hernández ([email or web address]). SHELLY TOBIN MD March 30, 2025 19:52
[2025-03-30 19:56] LABS: Basophils # (auto) 0.1 10 ^3/uL (0-0.2); Basophils % (auto) 1.2 % (0.0-2.0); Eosinophils # (auto) 0.1 10 ^3/uL (0-0.8); Eosinophils % (auto) 1.3 % (0.0-7.0); Hematocrit 40.3 % (36.0-46.0); Hemoglobin 13.4 g/dL (12.2-16.2); Lymphocytes # (auto) 1.9 10 ^3/uL (0.4-5.4); Lymphocytes % (auto) 23.5 % (10.0-50.0); Mean Corpuscular Hemoglobin 28.9 pg (28.0-32.0); Mean Corpuscular Hgb Conc. 33.2 g/dL (32.0-36.0); Monocytes # (auto) 0.5 10 ^3/uL (0-1.3); Monocytes % (auto) 5.7 % (0.0-12.0); Neutrophils # (auto) 5.6 10 ^3/uL (1.6-8.6); Neutrophils % (auto) 68.3 % (37.0-80.0); Platelet Count (auto) 291 10^3/uL (140-450); Red Blood Cells 4.63 10^6/uL (4.0-5.20); Red Cell Distribution Width 14.7 % (11.8-14.3); White Blood Cell 8.2 10^3/uL (4.4-10.8)
[2025-03-30 20:11] LABS: Alanine Aminotransferase 40 U/L (7-40); Albumin 4.8 g/dL (3.2-4.8); Alkaline Phosphatase 90 U/L (46-116); Anion Gap 10 (5-15); Aspartate Aminotransferase 34 U/L (13-40); BUN/Creatinine Ratio 16.2 (10.0-20.0); Bilirubin, Total 0.3 mg/dL (0.2-1.0); Blood Urea Nitrogen 21 mg/dL (9-23); Calcium 9.5 mg/dL (8.7-10.4); Carbon Dioxide 27 mmol/L (20-31); Chloride 100 mmol/L (98-107); Glucose 132 mg/dL (74-106); Lipase 26 U/L (12-53); Potassium 3.9 mmol/L (3.5-5.1); Sodium 137 mmol/L (136-145); Total Protein 7.3 g/dL (5.7-8.2)
--- NOTE | 2025-03-30 20:32 | DVH ---
Exam: CT CT AB PEL WO CON-NO ORAL OR IV History: Epigastric pain, nausea Comparison Study: CT CT AB PEL WO CON-NO ORAL OR IV on DOS: 04/28/24, CT ABD PELVIS WO CONTRAST on DOS : 07/18/20, CT ABD PELVIS WO CONTRAST on DOS: 08/28/19 TECHNIQUE: Multidetector CT of the abdomen was performed from lung bases to pubic symphysis. Imaging was performed without IV contrast. Axial, coronal and sagittal multiplanar reformats were obtained fr om the axial data set by the technologist. Radiation Dose Information: CT Dose: CTDI volume is 18.33 mGy. Dose-length product is 964.7 mGy*cm FINDINGS: Evaluation of solid organs is limited due to lack of intravenous contrast use. Findings: Lung Bases: No acute or significant lung base finding. Normal heart size. No pleural or pericardial effusion. Liver: The liver is normal in size. No focal lesions. Gallbladder and Biliary Tree: Gallbladder removed. Spleen: Unremarkable Pancreas: The pancreas is grossly normal in appearance. Adrenal Glands: Unremarkable Kidneys: Kidneys are grossly normal without calculi or hydronephrosis. Bladder: Grossly unremarkable for degree of distention. Bowel: The stomach is grossly normal in appearance. Small bowel and colon are normal in caliber and d istribution. No findings of bowel obstruction. There is a large stool burden in the right colon. The appendix is not visualized; however, no secondary findings of acute appendicitis identified. Ascites: Absent Lymphadenopathy: No mesenteric, retroperitoneal or periportal lymphadenopathy. Abdominal Wall and Mesentery: Unremarkable. Vasculature: The visualized abdominal aorta is normal in size and caliber. Evaluation of abdominal a nd pelvic vessels is limited due to lack of intravenous contrast. Pelvic Organs: Unremarkable Musculoskeletal: No aggressive focal bony lesions, acute fractures or dislocation. Soft tissues: Unremarkable IMPRESSION: 1. No findings of bowel obstruction. There is a large stool burden in the right colon. 2. Gallbladder has been surgically removed. 3. No nephrolithiasis or hydronephrosis. Radiation optimization: All CT scans at this facility use at least one of these dose optimization stephenie hniques: automated exposure control mA and/or kV adjustment per patient size (includes targeted exam s where dose is matched to clinical indication) or iterative reconstruction.
[2025-03-30] MEDS ORDERED: ZOFR4T PO (22:00)
[2025-03-30] MEDS ORDERED: SODIUM CHLORIDE 0.9% 1,000 ML IV ONE (22:00)
[2025-03-30] MEDS ORDERED: FAMO20TA10 PO (22:01)
[2025-03-30 23:35] VITALS: BP 129/43; PULSE 81; RESP 16; TEMP 97.9; O2SAT 95
--- NOTE | 2025-03-31 03:00 | ECG ---
[facility] Test Date: 2025-03-30 Test Time: 19:15:15 Pat Name: MARVA ACOSTA Department: ED Room: Gender: F Tuberculosis Specialist: : [id number] Requested By: SHELLY TOBIN Order Number: [id number] Reading MD: Tad Selby Measurements Intervals [place] Rate: 78 P: 28 [place]: 117 QRS: 3 QRSD: 86 T: 28 QT: 373 QTc: 425 Interpretive Statements Sinus rhythm Borderline short [place] interval Electronically Signed On 04-01-2025 12:47:10 PDT by Tad Selby Please click the below link to view image of tracing.
== END 2025-03-30 23:35 | disposition home or self-care (01) ==
LOC: ER 18:45
DX: N19 Unspecified kidney failure (principal); I10 Essential (primary) hypertension; E11.9 Type 2 diabetes mellitus without complications; E78.5 Hyperlipidemia, unspecified; K21.9 Gastro-esophageal reflux disease without esophagitis; M19.90 Unspecified osteoarthritis, unspecified site; Z79.82 Long term (current) use of aspirin; Z79.84 Long term (current) use of oral hypoglycemic drugs; Z79.899 Other long term (current) drug therapy; Z90.49 Acquired absence of other specified parts of digestive tract
CPT/HCPCS: 36415; 74176; 80053; 83690; 84484; 85025; 93005